=== PATIENT | male | born 1935 | race Caucasian/White ===

== ENCOUNTER 2022-06-05 08:18 | Day surgery (SDC) | payer OTHER ==
[~2022-06-05 08:18] MED LIST: Ak-Dilate OPHTHALMIC*** 1.065 ML, Cyclogyl 1% OPHTH SOL 1.065 ML, GATIFLOXACIN 0.5% OPH... OP ONE; BETADINE 5% OPHTHALMIC 30 ML OP ONE; Lactated Ringers 1,000 ML IV SCH; NON-FORMULARY ITEM OP ONE; TETRACAINE 0.5% STERI-UNIT SOL OP ONE; cefUROXime sodium 0.005 GM in Sodium Chloride Flush 30 ML*** 0.5 ML IJ ONE
[2022-06-05] MEDS ORDERED: Lactated Ringers 1,000 ML IV ONE (08:55)
[2022-06-05] MEDS ORDERED: Epinephrine Preservative Free 1 MG/ML IJ ONE (09:00)
[2022-06-05] MEDS ORDERED: Zofran 4 MG/2 ML VIAL IV PRN (09:00)
[2022-06-05] MEDS ORDERED: ACETAZOLAMIDE 250 MG TABLET PO ONE (09:00)
[2022-06-05] MEDS ORDERED: LIDOCAINE HCL 1% 50 MG/5 ML VL PF IJ ONE (09:00)
[2022-06-05] MEDS ORDERED: Xylocaine-Mpf 2% 5 Ml Vial ONE (11:21)
[2022-06-05] MEDS ORDERED: SUBLIMAZE 100 MCG/2 ML ONE (11:21)
[2022-06-05] MEDS ORDERED: DIPRIVAN 200 MG/20 ML IV ONE (11:21)
[2022-06-05] MEDS ORDERED: Versed 2 MG/2 ML Injection ONE (11:21)
[2022-06-05 11:57] VITALS: BP 143/68; PULSE 78; O2SAT 95
== END 2022-06-05 12:10 | disposition home or self-care (01) ==
LOC: SDC 08:18
PROVIDERS: ATTEND Ophthalmology
DX: H25.811 Combined forms of age-related cataract, right eye (principal); H25.812 Combined forms of age-related cataract, left eye; E11.9 Type 2 diabetes mellitus without complications
CPT/HCPCS: 82947; C1780; J0171; J2001; J2250; J2704; J3010; A9270-GY

== ENCOUNTER 2022-07-03 07:37 | Day surgery (SDC) | payer OTHER ==
[2022-07-03] MEDS ORDERED: Epinephrine Preservative Free 1 MG/ML IJ ONE (07:38)
[2022-07-03] MEDS ORDERED: Lactated Ringers 1,000 ML IV ONE (07:57)
[2022-07-03] MEDS ORDERED: Ak-Dilate OPHTHALMIC*** 1.065 ML, Cyclogyl 1% OPHTH SOL 1.065 ML, GATIFLOXACIN 0.5% OPH... OP ONE ×4 (08:00)
[2022-07-03] MEDS ORDERED: Lactated Ringers 1,000 ML IV SCH (08:00)
[2022-07-03] MEDS ORDERED: cefUROXime sodium 0.005 GM in Sodium Chloride Flush 30 ML*** 0.5 ML IJ ONE (08:00)
[2022-07-03] MEDS ORDERED: BETADINE 5% OPHTHALMIC 30 ML OP ONE (08:00)
[2022-07-03] MEDS ORDERED: TETRACAINE 0.5% STERI-UNIT SOL OP ONE (08:00)
[2022-07-03] MEDS ORDERED: NON-FORMULARY ITEM OP ONE (08:00)
[2022-07-03] MEDS: TETRACAINE 0.5% STERI-UNIT SOL OP ONE ×2 (08:26→08:55)
[2022-07-03] MEDS ORDERED: DIPRIVAN 200 MG/20 ML IV ONE (09:44)
[2022-07-03] MEDS ORDERED: SUBLIMAZE 100 MCG/2 ML ONE (09:57)
[2022-07-03] MEDS ORDERED: Zofran 4 MG/2 ML VIAL IV PRN (10:00)
[2022-07-03] MEDS ORDERED: ACETAZOLAMIDE 250 MG TABLET PO ONE (10:00)
[2022-07-03 10:10] VITALS: O2SAT 94
[2022-07-03 10:24] VITALS: BP 128/87; PULSE 77
== END 2022-07-03 10:26 | disposition home or self-care (01) ==
LOC: SDC 07:37
PROVIDERS: ATTEND Ophthalmology
DX: H25.811 Combined forms of age-related cataract, right eye (principal); E11.9 Type 2 diabetes mellitus without complications
CPT/HCPCS: 82947; 99100; C1780; J0171; J2704; J3010; A9270-GY